=== PATIENT | male | born 1960 | race Caucasian/White ===

== ENCOUNTER 2017-08-22 19:37 | Day surgery (SDC) | payer MEDICARE, MEDICAID ==
[~2017-08-22] VITALS: Ht 167.6 cm; Wt 83.3 kg
[2017-08-22] VITALS (7 sets, daily range): BP systolic 108–136; BP diastolic 67–85; PULSE 61–73; TEMP 97.3–98
[2017-08-22 15:31] LABS: BASO # 0.1 (0.0-0.2); BASO % 0.7 % (0.0-2.0); EOS # 0.1 (0.0-0.7); EOS % 0.9 % (0-4.0); HEMATOCRIT 41.5 % (42.0-52.0); HEMOGLOBIN 13.9 g/dl (13.5-18.0); LYMPH # 2.5 (1.2-3.4); MEAN CELL VOLUME 88 fl (80.0-100.0); MEAN CORPUSCULAR HEMOGLOBIN 29 pg (27.0-31.0); MEAN CORPUSCULAR HGB CONC 34 g/dl (33.0-37.0); MEAN PLATELET VOLUME 9.1 fl (7.4-10.4); MONO # 0.6 (0.1-0.6); MONO % 7.3 % (1.7-9.3); PLATELET COUNT 325 K/mm3 (130-400); RED BLOOD COUNT 4.74 M/mm3 (4.20-5.60)
[~2017-08-22 19:37] MED LIST: ABILIFY30 MG PO; ANTI-FUNGAL1% TOP; ASPIRIN E.C. 8181 MG PO; ATIVAN 0.50.5 MG/TAB PO; CEFACLOR500 M2 PO; COLACE 100100 MG/CAP PO; FLEXERIL 1010 MG/TAB PO; FLOMAX 0.40.4 MG/CAP PO; INCRUSE EL62.5 MCG/A IH; K-TAB20; LASIX 20MG TABL20 MG PO; MIRALAX PA17 GM/Dose PO; MOBIC15 MG PO; NORCO 325 MG-51 TAB PO; PERIDEX (CHLOR480 ML MM; PRIL40 PO; PROZAC40 MG PO; PULMICORT0.5 MG/2 M IH; SEREVENT IH; SINGULAIR 110 MG/TAB PO; SYNTHROID0.075 MG/T PO; SYSTANE 0.4%-0.1 SOL OP; THEO-24400 MG PO; THERAGRAN M1 UDTAB PO; VESICARE10 MG PO; VICTORS1 LO2 TOP; XOPENEX 1.1.25 MG/3
== END 2017-08-22 21:15 | disposition home or self-care (01) ==
LOC: SDCO 19:37 → JCC 19:51 → SDCO 19:51
PROVIDERS: Urology
DX: N20.2 Calculus of kidney with calculus of ureter (principal); F41.9 Anxiety disorder, unspecified; F32.9 Major depressive disorder, single episode, unspecified; R31.29 Other microscopic hematuria; K59.00 Constipation, unspecified; K21.9 Gastro-esophageal reflux disease without esophagitis; J44.9 Chronic obstructive pulmonary disease, unspecified; E03.9 Hypothyroidism, unspecified; I34.0 Nonrheumatic mitral (valve) insufficiency
CPT/HCPCS: OP; C1769; C1894; C2617; J0690; J1100; J1885; J2405; J2704; J3010; J7120; Q9967